=== PATIENT | female | born 1985 | race Two or more races ===

== ENCOUNTER 2023-03-25 08:16 | Emergency (ER) | payer SELFPAY ==
[2023-03-25 08:44] VITALS: BP 106/61; PULSE 83; RESP 18; TEMP 98.9; BMI 33.2
[2023-03-25] MEDS ORDERED: ONDANSETRON *ODT* 4 MG TABLET SL ONE (09:29)
[2023-03-25] MEDS ORDERED: ONDANSETRON *ODT* 4 MG TABLET ONE (09:35)
[2023-03-25] MEDS ORDERED: IBUPROFEN 600 MG TABLET (FP) PO ONE ×2 (10:00→10:06)
[2023-03-25] MEDS ORDERED: ACETAMINOPHEN 500 MG TABLET (FP) PO ONE (10:00)
[2023-03-25] MEDS ORDERED: ACETAMINOPHEN 500 MG TABLET (FP) ONE (10:06)
== END 2023-03-25 12:23 | disposition home or self-care (01) ==
LOC: JER 08:16
DX: R51.9 Headache, unspecified (principal); R11.0 Nausea; Y09 Assault by unspecified means
CPT/HCPCS: 99283-25; Q0162